=== PATIENT | male | born 1945 | race Caucasian/White ===

== ENCOUNTER 2018-03-14 15:12 | Emergency (ER) | payer MEDICARE, BC ==
[~2018-03-14] VITALS: Ht 172.7 cm; Wt 95.5 kg
[~2018-03-14 15:12] MED LIST: CLONIDINE0.1 MG PO; DICLOFENAC50 MG PO; GLUCOSAMINE & C1 TA1 PO; LOVASTATIN20 MG PO; METOPROLOL50 MG PO; MULTIPLE VITAMI1 CAP PO; NIFEDIPINE ER30 MG PO; OMEGA 31000 MG PO
[2018-03-14 16:27] VITALS: BP 163/98; PULSE 72; TEMP 97.9
== END 2018-03-14 16:25 | disposition home or self-care (01) ==
LOC: COL.ER 15:12
DX: S61.412A Laceration without foreign body of left hand, initial encounter (principal); F17.290 Nicotine dependence, other tobacco product, uncomplicated; Z23 Encounter for immunization; W01.0XXA Fall on same level from slipping, tripping and stumbling without subsequent striking against object, initial encounter; Y92.513 Shop (commercial) as the place of occurrence of the external cause; Y99.0 Civilian activity done for income or pay

== ENCOUNTER → 2018-08-23 | Outpatient (CLI) | payer MEDICARE, BC | LOC: COL.RAD 14:42 | DX: M21.372 Foot drop, left foot (principal); I63.9 Cerebral infarction, unspecified; Z98.890 Other specified postprocedural states | CPT/HCPCS: A9585 ==

== ENCOUNTER → 2018-09-17 | Outpatient (CLI) | payer MEDICARE, BC | LOC: COL.VAS 08:00 | DX: I63.9 Cerebral infarction, unspecified (principal); I35.1 Nonrheumatic aortic (valve) insufficiency; Z96.89 Presence of other specified functional implants ==

== ENCOUNTER 2019-02-28 11:00 | Outpatient (RCR) | payer MEDICARE, BC | END 2019-04-01 | disposition home or self-care (01) | LOC: WSPT | DX: G62.9 Polyneuropathy, unspecified (principal); M21.372 Foot drop, left foot; R29.898 Other symptoms and signs involving the musculoskeletal system; R26.81 Unsteadiness on feet; Z98.890 Other specified postprocedural states; Z79.82 Long term (current) use of aspirin; Z79.899 Other long term (current) drug therapy ==

== ENCOUNTER → 2019-08-26 | Outpatient (CLI) | payer MEDICARE, BC ==
[~2019-08-26] MED LIST changes: +ADALAT CC60 MG PO; +BENICAR HCT 12.1 TA1 PO; +GLUCOSAMINE MSM1 TAB PO; +LIPITOR 10MG10 MG PO; +MULTI VITAMINS1 TAB PO; +OMEGA-3 1000 MG1 CAP PO; +PLAVIX 75MG TAB75 MG PO; +ULTRAM 50MG TAB50 MG PO
--- NOTE | 2019-08-26 12:18 | NUR ---
PT DID NOT REMEMBER THAT HE WAS ON A BLOOD THINNER. HE WAS GIVEN WRITTEN INFORMATION TO THAT EFFECT AND THEN RESCHEDULE.
== END ==
LOC: COL.RAD 11:52
DX: Z53.9 Procedure and treatment not carried out, unspecified reason (principal)

== ENCOUNTER 2019-09-03 11:53 | Outpatient (CLI) | payer MEDICARE, BC ==
[2019-09-03] VITALS (7 sets, daily range): BP systolic 117–153; BP diastolic 69–76; PULSE 65–84; TEMP 97
[~2019-09-03] VITALS: Ht 172.7 cm; Wt 99.4 kg
--- NOTE | 2019-09-03 13:30 | NUR ---
Pt to EU 9 per cart s/p myelogram. Pt resting well.
--- NOTE | 2019-09-03 14:35 | NUR ---
Pt has ambulated, voided and genia PO intake s n/v.
--- NOTE | 2019-09-03 15:50 | NUR ---
Pt discharged per ambulation.
== END 2019-09-03 17:42 | disposition home or self-care (01) ==
LOC: COL.RAD 11:53
DX: M54.41 Lumbago with sciatica, right side (principal); M79.606 Pain in leg, unspecified; M96.0 Pseudarthrosis after fusion or arthrodesis; R26.81 Unsteadiness on feet; Z98.1 Arthrodesis status
CPT/HCPCS: Q9965

== ENCOUNTER 2020-01-15 16:22 | Emergency (ER) | payer MEDICARE, BC ==
[~2020-01-15] VITALS: Ht 172.7 cm; Wt 95.5 kg
[2020-01-15 16:30] VITALS: TEMP 97
[2020-01-15 17:17] LABS: BASO % 0.3 % (0.0-2.0); EOS # 0.1 (0.0-0.7); EOS % 0.6 % (0-4.0); GRAN # 6.6 (1.4-6.5); GRAN % 75.2 % (42.2-75.2); HEMATOCRIT 49.9 % (42.0-52.0); LYMPH # 1.3 (1.2-3.4); LYMPH % 14.5 % (20.0-51.0); MEAN CELL VOLUME 90 fl (80.0-100.0); MEAN CORPUSCULAR HEMOGLOBIN 31 pg (27.0-31.0); MEAN CORPUSCULAR HGB CONC 34 g/dl (33.0-37.0); MEAN PLATELET VOLUME 9.3 fl (7.4-10.4); MONO # 0.8 (0.1-0.6); MONO % 8.8 % (1.7-9.3); PLATELET COUNT 263 K/mm3 (130-400); RED BLOOD COUNT 5.56 M/mm3 (4.20-5.60); REDCELL DISTRIBUTION WIDTH-CV 14.2 % (11.5-14.5)
[2020-01-15 17:21] LABS: PROTHROMBIN TIME 11.4 SECONDS (9.7-12.8)
[2020-01-15] MEDS ORDERED: HCTZ12.5TAB PO (17:28)
[2020-01-15 17:29] LABS: ALBUMIN 4.1 gm/dL (3.5-5.0); BILIRUBIN,TOTAL 0.7 mg/dL (0.0-1.0); C-REACTIVE PROTEIN 1.1 mg/dL (0.0-0.9); CALCIUM 8.9 mg/dL (8.4-10.2); CREATININE, serum 0.87 (0.66-1.25); POTASSIUM 4.1 mmol/L (3.4-5.0); TOTAL PROTEIN 7.1 gm/dL (6.4-8.2)
[2020-01-15] MEDS ORDERED: PRILOSEC10 MG/Pack PO (17:29)
[2020-01-15] MEDS ORDERED: TYLENOL 500MG500 MG PO (17:30)
[2020-01-15] MEDS ORDERED: DEPO-TESTOS200 MG/M1 IM (17:32)
[2020-01-15 18:53] LABS: ARTERIAL BLD GAS O2 SATURATION 96.9 % (92-100); ARTERIAL BLD GAS TCO2 CT 28.5; ARTERIAL BLOOD GAS BASE EXCESS 2.9 (-2-2); ARTERIAL BLOOD GAS HCO3 27.2 meq/L (22-26); ARTERIAL BLOOD GAS PCO2 40.8 mmHg (35-45); ARTERIAL BLOOD GAS PO2 83.5 mmHg (80-100); ARTERIAL BLOOD GAS pH 7.44 (7.35-7.45)
[2020-01-15 19:14] VITALS: BP 156/94; PULSE 80
== END 2020-01-15 19:10 | disposition home or self-care (01) ==
LOC: COL.ER 16:22
PROVIDERS: Family Medicine
DX: J44.9 Chronic obstructive pulmonary disease, unspecified (principal); G47.33 Obstructive sleep apnea (adult) (pediatric); R20.2 Paresthesia of skin; F17.290 Nicotine dependence, other tobacco product, uncomplicated; Z79.02 Long term (current) use of antithrombotics/antiplatelets

== ENCOUNTER → 2020-01-30 | Outpatient (CLI) | payer MEDICARE, BC ==
[~2020-01-30] MED LIST changes: +DEPO-TESTOS200 MG/M1 IM; +HCTZ12.5TAB PO; +PRILOSEC10 MG/Pack PO; +TYLENOL 500MG500 MG PO
== END ==
LOC: COL.RAD 09:45
DX: Z01.89 Encounter for other specified special examinations (principal); Z01.812 Encounter for preprocedural laboratory examination; M47.816 Spondylosis without myelopathy or radiculopathy, lumbar region; M43.16 Spondylolisthesis, lumbar region; M48.061 Spinal stenosis, lumbar region without neurogenic claudication; R60.0 Localized edema; Z98.1 Arthrodesis status
CPT/HCPCS: A9585

== ENCOUNTER → 2021-02-12 | Outpatient (CLI) | payer MEDICARE, BC ==
[~2021-02-12] MED LIST changes: -BENICAR HCT 12.1 TA1 PO; +BENICAR40 MG; +ELIQUIS 5MG PO; +FLOMAX 0.40.4 MG/CAP PO; +HCTZ12.5TAB; -HCTZ12.5TAB PO; +NORCO 325 MG-51 TAB PO; +PRILOSEC 20MG20 MG PO; -PRILOSEC10 MG/Pack PO; +TOPROL XL 25MG25 MG PO; +TURMERIC500 MG PO
== END ==
LOC: COL.RAD 13:49
DX: R55 Syncope and collapse (principal); M54.2 Cervicalgia

== ENCOUNTER 2021-02-19 09:21 | Day surgery (SDC) | payer MEDICARE, BC ==
[~2021-02-19] VITALS: Ht 172.7 cm; Wt 99.3 kg
[~2021-02-19 09:21] MED LIST changes: -ELIQUIS 5MG PO; -FLOMAX 0.40.4 MG/CAP PO; -NORCO 325 MG-51 TAB PO; -TOPROL XL 25MG25 MG PO; -TURMERIC500 MG PO
[2021-02-19] MEDS ORDERED: NORCO 325 MG-51 TAB PO (09:36)
[2021-02-19] MEDS ORDERED: TURMERIC500 MG PO (09:39)
[2021-02-19] MEDS ORDERED: TOPROL XL 25MG25 MG PO (09:41)
[2021-02-19] MEDS ORDERED: FLOMAX 0.40.4 MG/CAP PO (09:44)
[2021-02-19] MEDS ORDERED: ELIQUIS 5MG PO (09:45)
[2021-02-19] MEDS ORDERED: LIPITOR 10MG10 MG PO (09:46)
[2021-02-19 10:08] VITALS: BP 132/79; PULSE 70; TEMP 97.8
--- NOTE | 2021-02-19 10:37 | NUR ---
Pt was found to be in sinus rhythm today, so cardioversion and MAYRA were cancelled. Dr. Rodriguez has been back in to discuss poc and plan for follow up with Dr. Bishop with patient. Dr. Rodriguez reviewed pt's medications and there were no changes to be made today. I walked pt down to exit where his was waiting to pick him up.
== END 2021-02-19 16:37 | disposition home or self-care (01) ==
LOC: COL.CAR 09:21
DX: I48.0 Paroxysmal atrial fibrillation (principal); I10 Essential (primary) hypertension; E78.5 Hyperlipidemia, unspecified; J44.9 Chronic obstructive pulmonary disease, unspecified; K21.9 Gastro-esophageal reflux disease without esophagitis; M19.90 Unspecified osteoarthritis, unspecified site; G89.29 Other chronic pain; Z20.822 Contact with and (suspected) exposure to COVID-19; Z87.891 Personal history of nicotine dependence; Z79.02 Long term (current) use of antithrombotics/antiplatelets

== ENCOUNTER 2022-04-23 10:36 | Emergency (ER) | payer MEDICARE, BC ==
[~2022-04-23] VITALS: Ht 172.7 cm; Wt 102.3 kg
[~2022-04-23 10:36] MED LIST changes: +ELIQUIS 5MG PO; +FLOMAX 0.40.4 MG/CAP PO; +NORCO 325 MG-51 TAB PO; +TOPROL XL 25MG25 MG PO; +TURMERIC500 MG PO
[2022-04-23 10:44] VITALS: TEMP 96.9
[2022-04-23 11:18] LABS: BASO # 0.1 K/mm3 (0.0-0.2); BASO % 0.7 % (0.0-2.0); EOS # 0.1 K/mm3 (0.0-0.7); GRAN % 74.5 % (42.2-75.2); HEMATOCRIT 51.7 % (42.0-52.0); HEMOGLOBIN 17.6 g/dl (13.5-18.0); LYMPH % 12.7 % (20.0-51.0); MEAN CELL VOLUME 94 fl (80.0-100.0); MEAN CORPUSCULAR HEMOGLOBIN 32 pg (27-31); MEAN CORPUSCULAR HGB CONC 34 g/dl (33.0-37.0); MEAN PLATELET VOLUME 9.4 fl (7.4-10.4); MONO # 0.8 K/mm3 (0.1-0.6); PLATELET COUNT 240 K/mm3 (130-400); RED BLOOD COUNT 5.53 M/mm3 (4.20-5.60); REDCELL DISTRIBUTION WIDTH-CV 13.6 % (11.5-14.5)
[2022-04-23 11:28] LABS: INR 1.3 (0.8-3.0); PROTHROMBIN TIME 14.8 SECONDS (9.7-12.8)
[2022-04-23 11:30] LABS: PARTIAL THROMBOPLASTIN TIME 36.3 SECONDS (26.0-37.0)
[2022-04-23 12:21] VITALS: BP 146/83; PULSE 71
== END 2022-04-23 12:21 | disposition home or self-care (01) ==
LOC: COL.ER 10:36
PROVIDERS: Emergency Medicine
DX: R04.0 Epistaxis (principal); F17.290 Nicotine dependence, other tobacco product, uncomplicated; Z79.01 Long term (current) use of anticoagulants

== ENCOUNTER 2022-05-21 18:18 | Emergency (ER) | payer MEDICARE, BC ==
[~2022-05-21] VITALS: Ht 172.7 cm; Wt 102.3 kg
[2022-05-21 18:36] VITALS: TEMP 97.2
[2022-05-21] MEDS ORDERED: ROXICODONE 55 MG/TAB PO (21:41)
[2022-05-21] MEDS ORDERED: CEPHALEXIN500 M1 PO (21:41)
[2022-05-21 21:56] VITALS: BP 125/77; PULSE 118
== END 2022-05-21 22:08 | disposition home or self-care (01) ==
LOC: COL.ER 18:18
DX: R04.0 Epistaxis (principal); I48.91 Unspecified atrial fibrillation; Z79.01 Long term (current) use of anticoagulants

== ENCOUNTER → 2022-12-30 | Outpatient (CLI) | payer MEDICARE, BC ==
[~2022-12-30] MED LIST changes: +CEPHALEXIN500 M1 PO; +ROXICODONE 55 MG/TAB PO
== END ==
LOC: COL.RAD 09:45
DX: Z01.818 Encounter for other preprocedural examination (principal); I87.8 Other specified disorders of veins; I25.10 Atherosclerotic heart disease of native coronary artery without angina pectoris

== ENCOUNTER → 2022-12-30 | Outpatient (CLI) | payer MEDICARE, BC | LOC: COL.VAS 07:24 → COL.RAD 07:24 | DX: Z01.810 Encounter for preprocedural cardiovascular examination (principal); I25.10 Atherosclerotic heart disease of native coronary artery without angina pectoris; K44.9 Diaphragmatic hernia without obstruction or gangrene; K31.89 Other diseases of stomach and duodenum; J98.11 Atelectasis ==

== ENCOUNTER → 2023-04-19 | Outpatient (RCR) | payer MEDICARE, BC | END | disposition home or self-care (01) | LOC: COL.CR | DX: Z48.812 Encounter for surgical aftercare following surgery on the circulatory system (principal); Z95.5 Presence of coronary angioplasty implant and graft; I73.9 Peripheral vascular disease, unspecified; I25.10 Atherosclerotic heart disease of native coronary artery without angina pectoris ==

== ENCOUNTER → 2024-03-26 | Outpatient (CLI) | payer MEDICARE, BC ==
[~2024-03-26] MED LIST changes: +PERCOCET 325 MG1 TA2 PO
== END ==
LOC: COL.RAD 15:55
DX: Z95.818 Presence of other cardiac implants and grafts (principal)

== ENCOUNTER → 2024-07-02 | Outpatient (CLI) | payer MEDICARE, BC | LOC: MHCPAIN 14:03 | DX: M54.50 Low back pain, unspecified (principal); M48.061 Spinal stenosis, lumbar region without neurogenic claudication; Z98.1 Arthrodesis status; M21.372 Foot drop, left foot | CPT/HCPCS: G0463 ==

== ENCOUNTER → 2024-08-26 | Outpatient (CLI) | payer MEDICARE, BC ==
[~2024-08-26] MED LIST changes: +Iohexol 300 - 10 ML VIAL ONE; +Lidocaine PF 2% (20 MG/ML) 2 ML VIAL ONE
== END ==
LOC: MHCPAIN 08-08 15:08
DX: M54.16 Radiculopathy, lumbar region (principal); M47.16 Other spondylosis with myelopathy, lumbar region; M54.50 Low back pain, unspecified; Z98.1 Arthrodesis status; Z95.0 Presence of cardiac pacemaker
CPT/HCPCS: J1100; Q9967